=== PATIENT | male | born 1950 | race Caucasian/White ===

== ENCOUNTER 2018-01-10 13:09 | Observation (INO) | payer MEDICARE, BC ==
[~2018-01-10] VITALS: Ht 177.8 cm; Wt 87.5 kg
[~2018-01-10 13:09] MED LIST: ASPIRIN ENTERI325 MG PO; FAMOTIDINE20 MG/2 ML IV; LEXAPRO10 MG PO; LIPITOR20 MG PO; LISINOPRIL2.5 MG PO; LOPRESSOR25 MG PO; NIFEDIPINE ER30 M1 PO; PLAVIX75 MG PO
[2018-01-10 13:41] LABS: INR 0.88; PROTHROMBIN TIME 12.8 seconds (11.9-14.5)
[2018-01-10 13:44] LABS: BASOPHILS # (AUTO) 0.1 (0.0-0.1); BASOPHILS % 0.6 % (0.0-1.0); EOSINOPHILS # (AUTO) 0.1 (0.0-0.4); EOSINOPHILS % 1.7 % (0.0-6.0); HEMATOCRIT 45.9 % (38.2-49.6); HEMOGLOBIN 15.6 g/dL (14.0-18.0); LYMPHOCYTES # (AUTO) 1.1 (1.0-3.2); LYMPHOCYTES % 13.6 % (18.0-39.1); MEAN CORPUSCULAR HEMOGLOBIN 32.6 pg (28-32); MONOCYTES # (AUTO) 0.7 (0.2-0.8); MONOCYTES % 8.8 % (4.4-11.3); NEUTROPHILS # (AUTO) 6.2 (2.1-6.9); NEUTROPHILS % 74.9 % (38.7-80.0); PLATELET COUNT 206 x10e3/uL (140-360); RED BLOOD COUNT 4.78 x10e6/uL (4.3-5.7); RED CELL DISTRIBUTION WIDTH 13.2 % (11.7-14.4)
[2018-01-10 13:47] LABS: PARTIAL THROMBOPLASTIN TIME 22.6 seconds (23.8-35.5)
[2018-01-10 13:51] LABS: ALANINE AMINOTRANSFERASE 27 IU/L (0-55); ALBUMIN 4.1 g/dL (3.5-5.0); ALBUMIN/GLOBULIN RATIO 1.5 (0.8-2.0); ALKALINE PHOSPHATASE 65 IU/L (40-150); ANION GAP 14.7 mmol/L (8-16); BLOOD UREA NITROGEN 20 mg/dL (7-26); BUN/CREATININE RATIO 18 (6-25); CALCIUM 9.5 mg/dL (8.4-10.2); CARBON DIOXIDE 24 mmol/L (22-29); CHLORIDE 103 mmol/L (98-107); CREATINE KINASE 338 IU/L (30-200); CREATININE, SERUM 1.14 mg/dL (0.72-1.25); EST GLOMERULAR FILTRATION RATE > 60 ML/MIN (60-); GLUCOSE 84 mg/dL (74-118); POTASSIUM 3.7 mmol/L (3.5-5.1); SODIUM 138 mmol/L (136-145)
[2018-01-10 14:04] LABS: CLARITY,URINE SL CLOUDY (CLEAR); COLOR,URINE YELLOW (YELLOW); LEUKOCYTE ESTERASE ,URINE NEGATIVE (NEGATIVE)
[2018-01-10 14:05] LABS: BILIRUBIN,URINE NEGATIVE (NEGATIVE); KETONES,URINE 1+ (NEGATIVE); NITRITE,URINE NEGATIVE (NEGATIVE); PROTEIN,URINE DIPSTICK NEGATIVE (NEGATIVE); URINE UROBILINOGEN 0.2 mg/dL (0.2 - 1)
[2018-01-10 14:10] LABS: BACTERIA,URINE RARE /HPF; RBC,URINE 0-5 /HPF (0-5); WBC,URINE (MAN) 0-5 /HPF (0-5)
--- NOTE | 2018-01-10 14:35 | Diagnostic Imaging Report ---
Examination: Single AP view of the chest. COMPARISON: 12/12/2015 INDICATION: Chest pain DISCUSSION: Lungs are well-inflated. No focal airspace consolidation, pleural effusion, or pneumothorax. Stable cardiomediastinal contour with tortuosity and atherosclerotic calcification of the thoracic aorta. Normal heart size. No overt pulmonary edema. Right midlung reticulonodular scar, unchanged. No acute osseous abnormalities. Nonaggressive appearing lucency in the distal shaft of the left clavicle is unchanged. IMPRESSION: No acute cardiopulmonary abnormality. Signed by: Dr. Baldemar Kevin M.D. on 01/10/2018 2:10 PM
[2018-01-10] MEDS ORDERED: SODIUM CHLORIDE 0.9% 500ML 500 ML IV ONE (15:30)
[2018-01-10] MEDS ORDERED: ASPIRIN 81 MG CHEW TAB PO ONE (16:15)
--- OUTSIDE RECORDS SUMMARY | 2018-01-10 16:22 | XMS REPORT ---
Author Author [facility] Address Unknown Phone Unavailable Care Team Providers Care Student Teacher Name Role Phone Abdi MICHELLE Unavailable Unavailable Problems This patient has no known problems. Allergies, Adverse Reactions, Alerts This patient has no known allergies or adverse reactions. Medications This patient has no known medications. Results Test Description Test Time Test Comments Text Results Atomic Results Result Comments CHEST SINGLE (PORTABLE) 2018-01-10 14:06:00 [place] [address] Patient Name: ARNOLDO CHAPIN MR #: [id number] : 1950 Age/Sex: 67/M Req #: [id number] Adm Physician: Ordered by: JAOSN MICHELLE MD Report #: [id number] Location: ER Room/Bed: Procedure: [id number] DX/CHEST SINGLE (PORTABLE) Exam Date: 01/10/18 Exam Time: 1320 REPORT STATUS: Signed Examination: Single AP view of the chest. COMPARI SON: 12/12/2015 INDICATION: Chest pain DISCUSSION: Lungs are well-inflated. No focal airspace consolidation, pleural effusion, or pneumothorax. Stable cardiomediastinal contour with tortuosity and atherosclerotic calcification of the thoracic aorta. Normal heart size. No overt pulmonary edema. Right midlung reticulonodular scar, unchanged. No acute osseous abnormalities. Nonaggressive appearing lucency in the distal shaft of the left clavicle is unchanged. IMPRESSION: No acute cardiopulmonary abnormality. Signed by: Dr. Kialey Hicks M.D. on 01/10/2018 2:10 PM Dictated By: KAILEY HICKS MD 141 Transcribed By: RYANN on 01/10/181409 COPY TO: JASON MICHELLE MD
[2018-01-10] MEDS ORDERED: ASPIR 8181 MG PO (17:38)
[2018-01-10 20:03] LABS: CREATINE KINASE MB 2.6 ng/mL (0-5.0)
[2018-01-10 20:30] VITALS: BP 140/117
--- NOTE | 2018-01-10 23:09 | Consultation ---
DATE OF CONSULTATION: January 10, 2018 CLINICAL HISTORY: This is a 67-year-old white man, known to me from previous evaluations, seen in the emergency room at [facility] because of dizziness following working in a warehouse, strenuous physical exertion, clearing out storage room. In 2015 this patient presented with non-STEMI and was found to have high-grade stenosis in right coronary artery, successfully treated with angioplasty and stenting. In September of last year, he had a nuclear stress test that was negative. Today, he was in a hurry to clean out storage place for his son and [id number] before it started raining. He was moving at a heavy pace and was not drinking any fluids. He was breathing hard, but continued to work. He felt tingling in fingers and his feet. When he went to his truck, he got a little bit dizzy. He sat down, felt better, went back to work. He then went home, took a shower. When he came out of shower, he was a little bit short of breath. His daughter insisted that he come to the emergency room whereas he thought did not need to. He came in and was seen by the emergency room physician. CK was slightly elevated, probably due to his exertion. CK-MB and troponin were normal. EKG showed no acute changes. Cardiology consultation was requested. I have asked this patient 5 to 6 different times, and he says he had no chest pains. Did not feel like anything like it is heart attack. PAST MEDICAL HISTORY: Remarkable for hypertension, anxiety, aortic root measuring 4.0 cm with mild aortic stenosis, aortic velocity 2.3 meters per second, some diastolic dysfunction, his ejection fraction in the range of 45% to 50%. PAST SURGERIES: None. FAMILY HISTORY: Noncontributory. PERSONAL / SOCIAL HISTORY: He is still a cigarette smoker. He was alcohol user in the past. REVIEW OF SYSTEMS: Noncontributory. PHYSICAL EXAMINATION VITALS: Stable. CARDIAC: Jugular veins are not distended. S1, S2 are regular. There is no appreciable murmur. LUNGS: Scattered crackles. ABDOMEN: Soft. Bowel sounds are present. EXTREMITIES: Show no cyanosis, clubbing or edema. LABORATORY DATA: EKG show no acute changes. Chest x-ray was negative. Blood test as mentioned. IMPRESSION: 1. Hyperventilation and dizziness and unsteadiness without any complaints of chest pains with normal electrocardiogram and with negative cardiac enzymes, unlikely to have any acute cardiac event at this time. 2. Hyperventilation with history of anxiety. 3. Possible volume depletion. 4. [id number] myocardial infarction in 2016, treated with angioplasty and stenting of the right coronary artery. 5. Continued cigarette smoking. 6. Hypertension. 7. History of mildly dilated aortic root at 4 cm. 8. Mild aortic stenosis, velocity 2.3 meters per second. 9. Left ventricular ejection fraction 45% to 50%. 10. History of metabolic acidosis, currently the bicarbonate is normal. RECOMMENDATION: I believe this patient can be discharged safely and follow up on an outpatient basis. He is instructed to come to see me in the office. Thank you very much. Job#: [id number] GE cc:MD SOHAIL CONTE MD
[2018-01-11] MEDS ORDERED: ASPIRIN 325 MG TAB EC PO SCH (09:00)
== END 2018-01-10 20:38 | disposition home or self-care (01) ==
LOC: ER 13:09 → UNDOADMOB 16:13 → ERHOLD 16:13 → ER 20:38
PROVIDERS: ADMIT Internal Medicine; ATTEND Internal Medicine
DX: R06.4 Hyperventilation (principal); R07.9 Chest pain, unspecified; R06.00 Dyspnea, unspecified; I10 Essential (primary) hypertension; I25.10 Atherosclerotic heart disease of native coronary artery without angina pectoris; Z95.5 Presence of coronary angioplasty implant and graft; I25.2 Old myocardial infarction; F41.9 Anxiety disorder, unspecified; F17.210 Nicotine dependence, cigarettes, uncomplicated; Z82.49 Family history of ischemic heart disease and other diseases of the circulatory system; R42 Dizziness and giddiness; I35.0 Nonrheumatic aortic (valve) stenosis
CPT/HCPCS: 36415; 71045; 80053; 81001; 82550; 82553; 83880; 84484; 85025; 85610; 85730; 93005; 99284; J7040; G0378